=== PATIENT | female | born 1985 | race Caucasian/White ===

== ENCOUNTER 2023-12-07 13:16 | Outpatient (CLI) | payer OTHER, SELFPAY | END 2023-12-07 13:17 | disposition home or self-care (01) | PROVIDERS: PCP Nurse Practitioner Family; Visit Provider Nurse Practitioner Family | DX: Z13.21 Encounter for screening for nutritional disorder (principal); Z13.29 Encounter for screening for other suspected endocrine disorder; Z13.0 Encounter for screening for diseases of the blood and blood-forming organs and certain disorders involving the immune mechanism | CPT/HCPCS: 82607; 84443; 85025 ==

== ENCOUNTER 2024-02-19 21:31 | Emergency (ER) | payer BC, SELFPAY ==
[2024-02-19 21:51] VITALS: BP 137/85; PULSE 69; RESP 20; TEMP 36.6; O2SAT 97; BMI 54.1
[2024-02-19 23:33] LABS: Appearance Urine Clear (Clear); Bilirubin Urine Negative (Negative); Blood Urine 2+ (Negative); Color Urine Yellow (Yellow); Glucose Urine Negative (Negative); Ketones Urine Negative (Negative); Leukocyte Esterase Urine Negative (Negative); Nitrite Urine Negative (Negative); Protein Urine Negative (Negative); Urobilinogen Urine 0.2 (0.2-1.0)
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
[2024-02-19 23:58] LABS: Squamous Epithelial Cell Urine Few (None-Few); WBC Urine 0-2 (0-5)
[2024-02-20 00:38] LABS: Basophils Absolute Auto 0.02 K/uL (0.00-0.30); Basophils Percent Auto 0.2 % (0.0-3.0); Eosinophils Absolute Auto 0.18 K/uL (0.00-0.50); Hematocrit 37.7 % (33.0-51.0); Hemoglobin* 11.8 gm/dL (12.0-16.0); Immature Granulocytes Abs Auto 0.02 K/uL (0.00-0.30); Immature Granulocytes Pct Auto 0.2 %; Lymphocytes Absolute Auto 2.73 K/uL (0.90-2.90); Lymphocytes Percent Auto 30.7 % (20-44); Mean Corpuscular HGB Conc 31 gm/dL (32-36); Mean Corpuscular Hemoglobin 26 pg (26-34); Mean Corpuscular Volume 81 fL (80-100); Monocytes Percent Auto 5.4 % (0.0-11.0); Neutrophils Absolute Auto 5.45 K/uL (1.7-7.0); Neutrophils Percent Auto 61.5 % (42.0-72.0); Platelet Count* 221 K/uL (140-440); RDW Coefficient of Variation % 15.3 % (11.5-15.5); Red Blood Count 4.63 m/uL (4.00-5.20); White Blood Count* 8.88 K/uL (4.50-11.00)
[2024-02-20 00:42] LABS: Slide Review Reflex No
[2024-02-20 00:52] LABS: Chloride* 102 mmol/L (96-114)
[2024-02-20 00:53] LABS: Potassium* 3.5 mmol/L (3.6-5.1); Sodium* 139 mmol/L (135-149)
[2024-02-20 00:55] LABS: Creatinine* 0.7 mg/dL (0.5-1.5); Est. Creatinine Clearance* 96.13; Estimated Glomerular Filt Rate 112 ml/min
[2024-02-20 00:56] LABS: Anion Gap 8 mEq/L (7-15); Blood Urea Nitrogen* 19 mg/dL (5-24); Calcium* 8.9 mg/dL (8.4-10.6); Carbon Dioxide* 29 mmol/L (20-32); Glucose* 120 mg/dL (60-115); Magnesium* 2.3 mg/dL (1.5-2.6)
[2024-02-20 00:59] LABS: D Dimer Quantitative* 0.36 ug/ml (0.00-0.50)
[2024-02-20 01:17] LABS: NT Pro B Type NatriureticPept* 37 pg/mL
--- NOTE | 2024-02-20 01:44 | CRLHL7_ITS ---
For Patients: As a result of the Century Cures Act, medical imaging exams and procedure reports are released immediately into your electronic medical record. You may view this report before your referring provider. If you have questions, please contact your health care provider. INDICATION: Pleuritic chest pain. TECHNIQUE: Chest 1 view. COMPARISON: None. FINDINGS: Cardiovascular and mediastinum: Heart size and vasculature are normal in caliber and appearance. Lungs and pleural spaces: Lungs are clear. No pleural effusion, or pneumothorax. Bones and soft tissues: Unremarkable for age. IMPRESSION: No evidence of an acute pulmonary process. Dictated by Bart Hunter MD @ 02/20/2024 2:13:04 AM (Electronically Signed)
== END 2024-02-20 03:29 | disposition home or self-care (01) ==
PROVIDERS: Emergency Provider Family Medicine; PCP Nurse Practitioner Family
DX: R00.2 Palpitations (principal); R53.83 Other fatigue
CPT/HCPCS: 36415; 71045; 80048; 81001; 83735; 83880; 84443; 85025; 85379; 93005; 93225; 93226; 99284

== ENCOUNTER 2024-02-23 11:07 | Outpatient (CLI) | payer BC, SELFPAY | END 2024-02-23 11:08 | disposition home or self-care (01) | PROVIDERS: PCP Nurse Practitioner Family; Visit Provider Nurse Practitioner Family | DX: R73.03 Prediabetes (principal); E66.01 Morbid (severe) obesity due to excess calories; R53.83 Other fatigue; R00.2 Palpitations; Z13.1 Encounter for screening for diabetes mellitus; Z13.6 Encounter for screening for cardiovascular disorders | CPT/HCPCS: 80061; 83540; 83550; 84132; 84443; 85025; 86376 ==

== ENCOUNTER 2024-04-20 18:34 | Outpatient (CLI) | payer BC, SELFPAY ==
--- NOTE | 2024-05-04 08:36 | W.PM.SLEEP ---
Sleep Study Details Details Interpreting Provider: Gus Date of Sleep Study: 04/20/24 Sleep Study Details: STUDY TYPE:? Home unattended ? BMI:? Not recorded ORDERING PROVIDER:Daylin Beth INDICATION:? Concern about sleep apnea ? SLEEP SUMMARY:? 288 minutes monitored RESPIRATORY SUMMARY: AHI 19.2 Low oxygen 70 7% of study oxygen less than 90% PERIODIC LIMB MOVEMENTS OF SLEEP:? Not record CARDIAC: Range 48-255, mean 79.7 IMPRESSION:? Tachycardia was recorded however the in the past this is often proven to be artifact so have the test rescored. Moderate obstructive sleep apnea RECOMMENDATION: Test needs to rescored to confirm presence or absence of tachycardia. If tachycardia was truly present further cardiac evaluation would be indicated. For these moderate sleep apnea treatment options include CPAP dental appliance weight loss and/or airway expansion surgery. Would favor CPAP.
== END 2024-04-20 18:35 | disposition home or self-care (01) ==
LOC: SLEEP 18:37
PROVIDERS: PCP Nurse Practitioner Family; Visit Provider Nurse Practitioner Family
DX: G47.33 Obstructive sleep apnea (adult) (pediatric) (principal); R00.0 Tachycardia, unspecified
CPT/HCPCS: 95806

== ENCOUNTER 2024-11-14 13:25 | Outpatient (CLI) | payer OTHER, SELFPAY | END 2024-11-14 13:26 | disposition home or self-care (01) | LOC: KYNREF 13:28 | PROVIDERS: PCP Nurse Practitioner Family; Visit Provider Nurse Practitioner Family | DX: R60.0 Localized edema (principal); R01.1 Cardiac murmur, unspecified | CPT/HCPCS: 80048 ==

== ENCOUNTER 2025-03-02 11:17 | Emergency (ER) | payer OTHER, SELFPAY ==
--- OUTSIDE RECORDS SUMMARY | 2025-03-02 11:19 | XMS_ITS | Clinical Summary ---
Author Organization [facility] Address [address] [place] [id number] Care Team Providers Care Casserole Preparer Name Role Phone Unknown, Doctor Primary Care Provider Unavailabl e Allergies Active Allergy Reactions Criticality Noted Date Comments Iodinated Contrast Media Anaphylaxis,Palpitati ons High 11/14/2018 Unlisted Allergen (Include Detail In Comments) Rash 02/27/2010 Unfiltered saki (rice etoh) Medications polyethylene glycoL (MIRALAX) 17 gram/dose powder PRN 01/18/2019 Active vitamin-folic acid 1 mg ( RX) tablet/capsule Take 1 tablet by mouth once daily. 0 03/31/2019 Active pyridoxine, vitamin B6, (VITAMIN B6) 25 mg tablet Take 1 tablet by mouth once daily. as needed for nausea 0 04/13/2019 Active folic acid 1 mg tabletIndication s:Encounter for supervision of other normal in first trimester (HC) Take 1 tablet by mouth once daily. 90 tablet 04/13/2019 Active metoclopramide HCl (REGLAN) 10 mg tabletIndication s:Nausea/vomitin g in (HC) Take 1 Tablet (10 mg) by mouth every 6 hours if needed for Nausea/Vomit ing. 30 Tablet 02/18/2021 Active hydrOXYzine HCL (ATARAX) 25 mg tabletIndication s:Anxiety Take 1 Tablet (25 mg) by mouth every 6 hours if needed for Anxiety or Other (Specify) (or nausea). 30 Tablet 1 02/27/2021 Active sertraline (ZOLOFT) 50 mg tabletIndication s:Anxiety Take 1 Tablet (50 mg) by mouth once daily. 30 Tablet 1 02/27/2021 Active folic acid 1 mg tabletIndication s:Encounter for supervision of high risk in first trimester, antepartum (HC) Take 1 Tablet (1 mg) by mouth once daily. 90 Tablet 2 02/27/2021 Active hydrOXYzine HCL (ATARAX) 25 mg tabletIndication s:Palpitations Take 1 Tablet (25 mg) by mouth every 8 hours if needed for Anxiety. 21 Tablet 02/07/2024 Active Active Problems Problem Noted Date Diagnosed Date Dysmenorrhea ADHD (attention deficit hyperactivity disorder) Immunizations Immunization Administration Dates Next Due DTP 08/14/1989, 5,1983,1983, 1983 Influenza, IIV3 (Age >=3 years) 03/30/2010,05/09 MMR 01/20/1995,09/27/1984 Polio Virus, Unspecified 12/20/1984,1983,0 1983,1983 Tdap 09/15/2019 Family History Medical History Relation Name Comments Cancer Father Bone Cancer-prostate Father 2011 Alcoholism Maternal Grandmother Cancer-breast No Family History Cancer-colon No Family History Diabetes No Family History Heart Disease No Family History Hypertension No Family History Relation Name Status Comments Brother Alive Father Maternal Grandfather Maternal Grandmother Mother Alive Paternal Grandfather Paternal Grandmother Sister Alive Social History Tobacco Use Types Packs/Day Years Used Date Smoking Tobacco: Former Cigarettes Q uit: 10/15/2013 Smokeless Tobacco: Never Tobacco Cessation:Counseling Given: Yes Comments: 09/2014; No exposure Alcohol Use Standard Drinks/Week Comments No 0 (1 standard drink = 0.6 oz pur e alcohol) 09/2014 PHQ-2 Answer Date Recorded PHQ-2 Score 0 04/13/2019 Social Connections Answer Date Recorded Frequency of Communication with Friends and Fami ly Not on file 05/30/2021 Financial Resource Strain Answer Date R ecorded Difficulty of Paying Living Expenses Not on file 05/30/2021 Difficulty of Paying Living Expenses Not on file 05/30/2021 Interpersonal Safety Answer Date Record ed Are you being hit, kicked, p ushed or yelled at (see row info)? No 02/07/2024 Interpersonal Safety Abuse 12 - 18 Not on file 02/07/2024 Interpersonal Safety Ambulatory Vulnerability No t on file 02/07/2024 Comments No Sex and Gender Information Value Date Recorded Sex Assigned at Not on file Legal Sex Female 6:29 AM TELEMETRY RN Gender Identity Not on file Sexual Orientation Not on file Obstetrics History Para Term AB IAB SAB Ectopic Multiple Livin g Live Births 4 2 1 1 1 0 2 2 Date Outcome GA Total Labor Labor/2nd/3rd Weight Sex Type Anes PTL Estela A1 A5 Name Clin 2010 Term M C-Sec tion Livin g 2015 AB 2019 36w 1d 0h 03m 0h 03m 2.33 kg (5 lb 2.2 oz) F CS-LT ranv Livin g 8 9 SENA BRICENO,ILIANA ruiz M.D., Ph.D. Delivery Location:[facility] ([facility] 03 3 L&D) Last Filed Vital Signs Vital Sign Reading Time Taken Comments Blood Pressure 125/79 02/07/2024 10:30 PM CDT Pulse 76 02/07/2024 10:30 PM CDT Temperature 36.9 C (98.4 F) 02/07/2024 9:28 PM CDT Respiratory Rate 20 02/07/2024 9:28 PM CDT Oxygen Saturation 96% 02/07/2024 10: 30 PM CDT Inhaled Oxygen Concentration - - Weight 147.1 kg (324 lb 4.8 oz) 02/07/2024 9:27 PM CDT Height 162.6 cm (5' 4) 02/07/2024 9:27 PM CDT Body Mass Index 55.67 02/07/2024 9:27 PM CDT Plan of Treatment Health Maintenance Due Date Last Done Comments Hepatitis C screening for ag e 18-79 2001 Hepatitis B series for 19+ ( 1 of 3 - 19+ 3-dose series) 2002 HPV series for age 9-45 (1 - 3-dose SCDM series) 2010 Pap test for age 21-65 01/09/2017 4, 01/04/2010 BMI (ht and wt on same day) for age 18+ 04/13/2020 04/13/2019, 03/31/2019 Depression screening for age 12+ 04/13/2020 04/13/2019 COVID-19 vaccine series ( season) 2025 Influenza Vaccine (#1) 2025 0, 05/09/2005 Tetanus booster 09/14/2029 09/15/2019, 06/08/2002 RSV vaccine for adults or (1 - 1-dose 75+ series) 2058 HIV for age 15-65 Completed 02/27/2021, 03/31/2019 Pneumococcal series for age 6-49 Aged Out No longer eligible b ased on patient's age to complete this topic Procedures Procedure Name Priority Date/Time Associated Diagnosis Comments ANTI HIV 1/2 Routine 02/27/2021 12:44 PM CDT , unspecified gestational age (HC) from Last 3 Months or Most Recently Relevant to Health Maintenance Results * ANTI HIV 1/2 (02/27/2021 12:44 PM CDT) HIV-1/HIV-2 ANTIBODY Non-Reacti ve Non-Reacti ve 02/27/2021 8:07 PM CDT [facility] Comment:HIV-1 p24 and HIV-1/ HIV-2 Ab not detected. Blood BLOOD SPECIMEN / Unknown Butterfly / Unknown 02/27/2021 12:44 PM CDT 02/27/2021 12:50 PM CDT Dorota White MD SEND OUTS Final Result [facility] [address] [place] [address], [place] from Last 3 Months or Most Recently Relevant to Health Maintenance Insurance [facility] Care Teams Casserole Preparer Relationship Specialty Start Date End Date Unknown, Doctor . PCP - General 02/07/24
[2025-03-02 11:22] VITALS: BP 147/75; PULSE 80; RESP 18; TEMP 36.9; O2SAT 100; BMI 54.9
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
[2025-03-02 12:08] LABS: Hematocrit* 37.8 % (33.0-51.0); Hemoglobin* 11.9 gm/dL (12.0-16.0); Immature Granulocytes Abs Auto 0.02 K/uL (0.00-0.30); Immature Granulocytes Pct Auto 0.3 %; Mean Corpuscular HGB Conc 32 gm/dL (32-36); Mean Corpuscular Hemoglobin 25 pg (26-34); Mean Corpuscular Volume 80 fL (80-100); RDW Coefficient of Variation % 15.2 % (11.5-15.5); Red Blood Count* 4.70 m/uL (4.00-5.20); White Blood Count* 7.68 K/uL (4.50-11.00)
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
[2025-03-02 12:15] LABS: Lymphocytes Absolute Auto 1.50 K/uL (0.90-2.90); Slide Review Reflex No
[2025-03-02 12:22] LABS: Troponin, Point-of-Care* 0.00 ng/ml (0.01-0.04)
[2025-03-02 12:22] LABS: Chloride* 99 mmol/L (96-114); Sodium* 136 mmol/L (135-149)
[2025-03-02 12:23] LABS: Potassium* 3.7 mmol/L (3.6-5.1)
[2025-03-02 12:25] LABS: Blood Urea Nitrogen* 15 mg/dL (5-24); Creatinine* 0.6 mg/dL (0.5-1.5); Est. Creatinine Clearance* 106.55; Estimated Glomerular Filt Rate 116 ml/min
[2025-03-02 12:26] LABS: Anion Gap 6 mEq/L (7-15); Calcium* 8.9 mg/dL (8.4-10.6); Carbon Dioxide* 31 mmol/L (20-32); Glucose* 134 mg/dL (60-115)
== END 2025-03-02 13:38 | disposition home or self-care (01) ==
PROVIDERS: Emergency Provider Emergency Medicine Emergency Medical Services; PCP Nurse Practitioner Family
DX: R07.9 Chest pain, unspecified (principal)
CPT/HCPCS: 36415; 80048; 84484; 85025; 93005; 99284